=== PATIENT | female | born 1990 | race Two or more races ===

== ENCOUNTER 2016-12-17 06:17 | Inpatient (IN) | payer MEDICAID ==
[~2016-12-17] VITALS: Ht 172.7 cm; Wt 96.0 kg
--- NOTE | ~2016-12-17 | OR ---
PATIENT'S NAME: MYLES EARL [facility] AGE: 26 Y [address] ROOM: [place] [address] LOCATION: GOBS ADMIT DATE: 12/17/2016 OR/Procedure Report DISCHARGE DATE: FAMILY PHYSICIAN: Ricky Jones MD ATTENDING PHYSICIAN: Maurilio Conklin SURGEON: Maurilio Conklin MD SALES OFFICE MANAGER: DATE OF PROCEDURE: 12/17/2016 PREOPERATIVE DIAGNOSIS: Intrauterine at 39 weeks. POSTOPERATIVE DIAGNOSIS: Intrauterine at 39 weeks. PROCEDURE PERFORMED: Spontaneous vaginal delivery. ESTIMATED BLOOD LOSS: 300 mL. ANESTHESIA: Epidural. FINDINGS: Female . score 8 and 9. Weight 8 pounds 10 ounces. Intact placenta, 3-vessel cord. No lacerations. Clear amniotic fluid. INDICATIONS: This patient is a 26-year-old, G3, P2-0-0-2 female, who presented for elective induction. She had an uncomplicated . She had artificial rupture of membranes followed by Pitocin and then within 4 hours, she was complete. She underwent expulsive efforts for 3 contractions. PROCEDURE DETAILS: With expulsive efforts, the head delivered over an intact perineum. The rest of the fetus delivered. The nose and mouth were bulb suctioned. The cord was clamped and cut. The was handed to awaiting team. Cord blood was drawn. The placenta delivered with manual traction. Cervix, vagina, and perineum were examined and no lacerations were noted. COMPLICATIONS: None. CONDITION: Mom stable in room. Infant to nursery. MAURILIO CONKLIN MD AJJ/modl PATIENT'S NAME: MYLES EARL [facility] AGE: 26 Y [address] ROOM: [place] [address] LOCATION: [facility] ADMIT DATE: 12/17/2016 OR/Procedure Report DISCHARGE DATE: FAMILY PHYSICIAN: Ricky Jones MD ATTENDING PHYSICIAN: Maurilio Conklin /[id number] d: 12/17/16 1351 t: 12/21/16 2039, OPERATIVE SUMMARY
[~2016-12-17 06:17] MED LIST: MOTRIN800 MG PO; PERCOCET 5-3251 EACH PO; PRENATAL 1+1)(P1 TAB PO
[2016-12-17 07:33] LABS: BASOPHIL % 0.2 %; EOSINOPHIL # 0.1 K/uL (0.0-0.5); EOSINOPHIL % 0.9 %; HEMATOCRIT 33.2 % (33.0-46.0); HEMOGLOBIN 11.4 g/dL (11.0-15.0); IMMATURE GRANULOCYTE # 0.1 K/uL (0.0-0.3); IMMATURE GRANULOCYTE % 0.6 %; LYMPHOCYTE # 1.9 K/uL (0.8-4.0); LYMPHOCYTE % 19.2 %; MCH 29.4 pg (27.0-34.0); MCHC 34.3 gm/dL (32.0-36.5); MCV 85.6 fl (83.0-98.0); MONOCYTE # 0.7 K/uL (0.0-1.0); MONOCYTE % 6.6 %; MPV 11.6 fl (9.4-12.4); NEUTROPHIL # (ANC) 7.3 K/uL (1.8-7.8); NEUTROPHIL % 72.5 %; NRBC % 0 /100WBC (0-0.00); PLATELET COUNT 181 K/uL (150-450); RBC 3.88 M/uL (3.50-5.00); RDW-CV 13.3 % (11.9-14.6)
[2016-12-18 04:03] LABS: BASOPHIL % 0.3 %; EOSINOPHIL # 0.1 K/uL (0.0-0.5); EOSINOPHIL % 1.6 %; HEMOGLOBIN 9.7 g/dL (11.0-15.0); IMMATURE GRANULOCYTE % 0.4 %; LYMPHOCYTE # 2.1 K/uL (0.8-4.0); LYMPHOCYTE % 23.1 %; MCH 29.5 pg (27.0-34.0); MCHC 33.4 gm/dL (32.0-36.5); MCV 88.1 fl (83.0-98.0); MONOCYTE # 0.7 K/uL (0.0-1.0); MONOCYTE % 7.6 %; MPV 11.3 fl (9.4-12.4); NRBC % 0 /100WBC (0-0.00); PLATELET COUNT 146 K/uL (150-450); RBC 3.29 M/uL (3.50-5.00); RDW-CV 13.5 % (11.9-14.6)
--- NOTE | 2016-12-18 05:35 | NUR ---
VSS, FUNDUS FIRM, -1, SMALL FLOW. VOIDING WITHOUT DIFFICULTY. LAST HAD PERCOCET AT 2036.
[2016-12-19] MEDS ORDERED: MOTRIN800 MG PO (09:13)
[2016-12-19] MEDS ORDERED: DERMOPLAST SPRA56 GM TOP (09:13)
[2016-12-19] MEDS ORDERED: PERCOCET 5-3251 EACH PO (09:13)
== END 2016-12-19 10:00 | disposition disaster alternative care site (69) | DRG 775 ==
LOC: GOBS 06:17 → GOBM 06:17 → GOBS 06:18 → GOBM 06:18 → GOBS 12-19 10:00
PROVIDERS: ADMIT Obstetrics & Gynecology
PROC: 10E0XZZ Delivery of Products of Conception, External Approach (ICD-10-PCS; principal; 2016-12-17)
PROC: 3E033VJ Introduction of Other Hormone into Peripheral Vein, Percutaneous Approach (ICD-10-PCS; principal; 2016-12-17)
DX: O99.824 Streptococcus B carrier state complicating childbirth (principal); E03.9 Hypothyroidism, unspecified; Z37.0 Single live birth; Z3A.39 39 weeks gestation of pregnancy; O99.284 Endocrine, nutritional and metabolic diseases complicating childbirth
CPT/HCPCS: J2001; J2540; J2590; J3010; J7120